=== PATIENT | male | born 1980 | race Caucasian/White ===

== ENCOUNTER 2021-03-29 11:34 | Day surgery (SDC) | payer MEDICARE, MEDICAID ==
[~2021-03-29] VITALS: Ht 177.8 cm; Wt 102.8 kg
[2021-03-29] VITALS (8 sets, daily range): BP systolic 89–125; BP diastolic 55–80
[2021-03-29] MEDS ORDERED: APIX5TAB3 PO (12:03)
[2021-03-29] MEDS ORDERED: CARV25TA3 PO (12:03)
[2021-03-29] MEDS ORDERED: LISI20TA28 PO (12:03)
[2021-03-29] MEDS ORDERED: ROSU40TA22 PO (12:03)
[2021-03-29] MEDS ORDERED: clindamycin-Cleocin 900mg/D5W 50 ML IV ONE (12:15)
[2021-03-29] MEDS ORDERED: vancomycin 1,500 MG in NS 300ml IV soln IV ONE (12:15)
[2021-03-29 12:24] LABS: BASOPHILS # (AUTO) 0.1 X10'3 (0-0.2); EOSINOPHILS # (AUTO) 0.1 X10'3 (0-0.9); EOSINOPHILS % (AUTO) 1.6 % (0-6); LYMPHOCYTES % (AUTO) 25.7 % (21-51); MEAN CORPUSCULAR VOLUME 94.4 FL (78-98); MEAN PLATELET VOLUME 8.1 FL (7.4-10.4); MONOCYTES # (AUTO) 0.6 X10'3 (0-0.9); MONOCYTES % (AUTO) 7.9 % (2-12); NEUTROPHILS # (AUTO) 4.9 X10'3 (1.8-7.7); NEUTROPHILS % (AUTO) 63.8 % (42-75); PLATELET COUNT 260 X10'3 (140-440); RED BLOOD COUNT 4.99 X10'6 (4.70-6.10); RED CELL DISTRIBUTION WIDTH 13.5 % (11.5-14.5); WHITE BLOOD COUNT 7.6 X10'3 (4.5-11.0)
[2021-03-29] MEDS ORDERED: vancomycin 1,000mg inj ONE (12:26)
[2021-03-29] MEDS ORDERED: midazolam 1 mg/ML 2ml injection ONE ×2 (12:26→12:58)
[2021-03-29] MEDS ORDERED: fentaNYL/PF 50MCG/1 ML 2ML syringe ONE (12:26)
[2021-03-29] MEDS ORDERED: LIDOCAINE 2% w/EPI 1:100:000 30mL injection MDV**cath lab 1 only ONE (12:27)
[2021-03-29] MEDS: normal saline 1000ml 1,000 ML IV SCH ×2 (12:33→13:00)
[2021-03-29 12:41] LABS: ALBUMIN 4.6 G/DL (3.4-5.0); ANION GAP 11 (8-16); BLOOD UREA NITROGEN 15 MG/DL (7-18); BUN/CREATININE RATIO 15.8 (5.4-32.0); CALCIUM 9.1 MG/DL (8.5-10.1); CHLORIDE 104 MMOL/L (99-107); CREATININE 0.95 MG/DL (0.60-1.10); GLUCOSE 88 MG/DL (70-104); MAGNESIUM 1.9 MG/DL (1.5-2.4); POTASSIUM 4.3 MMOL/L (3.5-5.1); SODIUM 142 MMOL/L (135-145); TOTAL CARBON DIOXIDE 26.7 MMOL/L (24-32); eGFR 87 ML/MIN
[2021-03-29] MEDS ORDERED: HYDROcodone/acetaminophen 10/325mg tab PO PRN (13:55)
[2021-03-29] MEDS ORDERED: HYDROcodone/acetaminophen 5mg/325mg tablet PO PRN (13:55)
[2021-03-29] MEDS ORDERED: normal saline 1000ml 1,000 ML IV SCH (14:00)
== END 2021-03-29 15:45 | disposition home or self-care (01) ==
LOC: SSTAY O 11:34
PROVIDERS: ATTEND Internal Medicine Cardiovascular Disease
DX: T82.111A Breakdown (mechanical) of cardiac pulse generator (battery), initial encounter (principal); I42.0 Dilated cardiomyopathy; I10 Essential (primary) hypertension; E78.5 Hyperlipidemia, unspecified; Z86.73 Personal history of transient ischemic attack (TIA), and cerebral infarction without residual deficits; Z79.01 Long term (current) use of anticoagulants; Z79.899 Other long term (current) drug therapy; Z87.891 Personal history of nicotine dependence; Z88.0 Allergy status to penicillin; Z88.5 Allergy status to narcotic agent; Y83.8 Other surgical procedures as the cause of abnormal reaction of the patient, or of later complication, without mention of misadventure at the time of the procedure; Y92.89 Other specified places as the place of occurrence of the external cause
CPT/HCPCS: 33263; 36415; 80048; 83735; 85025; 85610; 99152; 99153; A4620; A6258; C1721; J2250; J3010; J3370; J7030